=== PATIENT | male | born 1975 | race Caucasian/White ===

== ENCOUNTER 2020-01-14 18:14 | Emergency (ER) | payer BC, OTHER ==
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
[2020-01-14] MEDS ORDERED: Lidocaine 1% with EPINEPHrine 1:100,000 50 ML MDV INFILT SCH (19:15)
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
[2020-01-14] MEDS ORDERED: Diphtheria,Pertussis(Acell),Tetanus Vaccine 0.5 ML SDV IM ONE (19:56)
[2020-01-14] MEDS ORDERED: Bacitracin Oint 1 GM U/D Packet TOP ONE (19:59)
== END 2020-01-14 20:25 | disposition home or self-care (01) ==
LOC: JP.ED 18:14
DX: S71.132A Puncture wound without foreign body, left thigh, initial encounter (principal); S30.0XXA Contusion of lower back and pelvis, initial encounter; Z23 Encounter for immunization; V86.99XA Unspecified occupant of other special all-terrain or other off-road motor vehicle injured in nontraffic accident, initial encounter
CPT/HCPCS: 12001; 73552-LT; 90471; 90715; 99283-25

== ENCOUNTER 2020-03-17 10:53 | Emergency (ER) | payer BC ==
[2020-03-17] MEDS ORDERED: Lidocaine 1% with EPINEPHrine 1:100,000 50 ML MDV INFILT ONE (11:21)
[2020-03-17] MEDS ORDERED: Bacitracin Oint 1 GM U/D Packet TOP ONE (11:21)
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
== END 2020-03-17 11:50 | disposition home or self-care (01) ==
LOC: JP.ED 10:53
DX: S61.412A Laceration without foreign body of left hand, initial encounter (principal); W34.19XA Accidental malfunction from other specified firearms, initial encounter
CPT/HCPCS: 12001; 99282